=== PATIENT | female | born 1995 | race Hispanic/Latino ===

== ENCOUNTER 2017-08-26 18:19 | Inpatient (IN) | payer MEDICAID ==
[~2017-08-26] VITALS: Ht 152.4 cm; Wt 80.3 kg
[~2017-08-26 18:19] MED LIST: PREN-64 PO
[2017-08-26] MEDS ORDERED: LACTATED RINGERS 1000ML 1,000 ML IV PRN (19:19)
[2017-08-26 19:50] LABS: APPEARANCE,URINE Cloudy (CLEAR); BILIRUBIN,URINE Negative (NEGATIVE); COLOR,URINE Dark Yellow (YELLOW); GLUCOSE, URINE (UA) Negative (NEGATIVE); KETONES,URINE Negative (NEGATIVE); LEUKOCYTE ESTERASE ,URINE Large (NEGATIVE); NITRATE,URINE Negative (NEGATIVE); OCCULT BLOOD,URINE Negative (NEGATIVE); PROTEIN,URINE POS 1+ (NEGATIVE)
[2017-08-26 20:18] LABS: BACTERIA,URINE Many /HPF (None Seen); RBC,URINE None Seen /HPF (0-1)
[2017-08-27] VITALS (10 sets, daily range): BP systolic 118–153; BP diastolic 75–97
[2017-08-27] MEDS ORDERED: LACTATED RINGERS 1000ML 1,000 ML IV ONE (03:34)
[2017-08-27] MEDS ORDERED: OXYTOCIN 10 USP UNITS/ML ONE ×2 (03:35→14:59)
[2017-08-27] MEDS ORDERED: OXYTOCIN 10 USP UNITS/ML 20 UNIT in LACTATED RINGERS 1000ML 1,000 ML IV SCH (04:00)
[2017-08-27] MEDS ORDERED: NALOXONE HCL 0.4 MG/1 ML ML IV PRN (05:30)
[2017-08-27] MEDS ORDERED: EPHEDRINE SULFATE 50 MG/ML AMPULE IVP PRN (05:30)
[2017-08-27] MEDS ORDERED: LACTATED RINGERS 500 ML 500 ML IV PRN (05:30)
[2017-08-27] MEDS ORDERED: MEPERIDINE-PF 50 MG/ML SYG IVP SCH (06:58)
[2017-08-27] MEDS ORDERED: PROMETHAZINE HCL 25 MG/ML 1ML AMPULE IM SCH (06:58)
[2017-08-27] MEDS ORDERED: MEPERIDINE-PF 50 MG/ML SYG ONE (07:12)
[2017-08-27] MEDS ORDERED: PROMETHAZINE HCL 25 MG/ML 1ML AMPULE IM ONE (07:15)
[2017-08-27] MEDS ORDERED: MEPERIDINE-PF 25 MG/ML SYG IVP ONE (09:00)
[2017-08-27] MEDS ORDERED: MEPERIDINE-PF 25 MG/ML SYG ONE (09:01)
[2017-08-27] MEDS ORDERED: MEASLES/MUMPS/RUBELLA VACCINE, LIVE 0.5 ML/VIAL SQ PRN (11:15)
[2017-08-27] MEDS ORDERED: LANOLIN 30GM OINTMENT TP PRN (11:15)
[2017-08-27] MEDS ORDERED: BENZOCAINE/LANOLIN/ALOE VERA 60 ML AEROSOL TP PRN (11:15)
[2017-08-27] MEDS ORDERED: DIPH,PERTUSS(ACELL),TET VAC/PF 0.5 ML VIAL IM PRN (11:15)
[2017-08-27] MEDS ORDERED: WITCH HAZEL 1 PAD TP PRN (11:15)
[2017-08-27] MEDS: IBUPROFEN 600 MG TABLET PO PRN ×2 (11:31→20:48)
[2017-08-27] MEDS: ACETAMINOPHEN 325 MG TAB PO PRN (15:47)
[2017-08-27] MEDS: DOCUSATE SODIUM 100 MG CAP PO SCH (20:48)
[2017-08-28 02:59] VITALS: BP 108/56
[2017-08-28 05:33] LABS: HEMATOCRIT 24.6 % (36-48); MEAN CORPUSCULAR HEMOGLOBIN 27.7 pg (27.0-33.0); MEAN CORPUSCULAR VOLUME 83.9 fL (79-99); PLATELET COUNT (AUTO) 218 K/uL (130-400); RED BLOOD CELL COUNT(AUTO) 2.93 MIL/uL (4.00-5.50); RED CELL DISTRIBUTION WIDTH 13.3 % (11.0-15.5); WHITE BLOOD COUNT (AUTO) 16.1 K/uL (4.8-10.8)
[2017-08-28 08:10] VITALS: BP 127/71
[2017-08-28 08:17] LABS: HEPATITIS Bs ANTIGEN SCREEN P Negative (Negative)
[2017-08-28] MEDS: DOCUSATE SODIUM 100 MG CAP PO SCH (10:02)
[2017-08-28] MEDS: IBUPROFEN 600 MG TABLET PO PRN (10:02)
[2017-08-28 11:55] VITALS: BP 133/81
[2017-08-28] MEDS: ACETAMINOPHEN 325 MG TAB PO PRN (12:02)
[2017-08-28 16:06] VITALS: BP 124/63
== END 2017-08-28 18:25 | disposition home or self-care (01) | DRG 560 ==
LOC: LDH 18:19 → WSH 08-27 09:50
PROVIDERS: ADMIT Obstetrics & Gynecology; ATTEND Obstetrics & Gynecology
PROC: 10E0XZZ Delivery of Products of Conception, External Approach (ICD-10-PCS; principal; 2017-08-26)
PROC: 10907ZC Drainage of Amniotic Fluid, Therapeutic from Products of Conception, Via Natural or Artificial Opening (ICD-10-PCS; 2017-08-26)
PROC: 3E0P3VZ Introduction of Hormone into Female Reproductive, Percutaneous Approach (ICD-10-PCS; 2017-08-26)
PROC: 3E0234Z Introduction of Serum, Toxoid and Vaccine into Muscle, Percutaneous Approach (ICD-10-PCS; 2017-08-26)
PROC: 3E0134Z Introduction of Serum, Toxoid and Vaccine into Subcutaneous Tissue, Percutaneous Approach (ICD-10-PCS; 2017-08-26)
DX: O98.82 Other maternal infectious and parasitic diseases complicating childbirth (principal); Z23 Encounter for immunization; Z37.0 Single live birth; Z3A.40 40 weeks gestation of pregnancy
CPT/HCPCS: 36415; 81001; 85027; 86592; 86850; 86900; 86901; 87340; A4314; A4351; A4606; J2175; J2550; J2590; J7120

== ENCOUNTER 2019-10-12 09:46 | Observation (INO) | payer MEDICAID | END 2019-10-12 14:20 | disposition home or self-care (01) | LOC: EDH 09:46 → LDH 10:31 | PROVIDERS: ADMIT Obstetrics & Gynecology; ATTEND Obstetrics & Gynecology | DX: O46.93 Antepartum hemorrhage, unspecified, third trimester (principal); Z3A.28 28 weeks gestation of pregnancy; Z87.59 Personal history of other complications of pregnancy, childbirth and the puerperium | CPT/HCPCS: 59025; 76805; 99284; G0378 ×4 ==

== ENCOUNTER 2019-12-18 07:44 | Inpatient (IN) | payer MEDICAID ==
[~2019-12-18] VITALS: Ht 152.4 cm; Wt 76.2 kg
[2019-12-18] MEDS ORDERED: LACTATED RINGERS 1000ML 1,000 ML IV PRN (08:22)
[2019-12-18] MEDS ORDERED: MEPERIDINE-PF 50 MG/ML SYG ONE (08:24)
[2019-12-18] MEDS ORDERED: OXYTOCIN 10 USP UNITS/ML 20 UNIT in LACTATED RINGERS 1000ML 1,000 ML IV SCH (08:30)
[2019-12-18] MEDS ORDERED: OXYTOCIN-LR 20 UNITS/1000 ML 1,000 ML IV SCH ×2 (08:30→09:45)
[2019-12-18] MEDS ORDERED: LIDOCAINE HCL 1% 20 ML VIAL INJ PRN (08:30)
[2019-12-18 08:53] LABS: MEAN CORPUSCULAR HEMOGLOBIN 28.2 pg (27.0-33.0); MEAN CORPUSCULAR HGB CONC 32.4 g/dL (32.0-36.0); MEAN CORPUSCULAR VOLUME 87.2 fL (79-99); RED BLOOD CELL COUNT(AUTO) 3.9 MIL/uL (4.00-5.50); RED CELL DISTRIBUTION WIDTH 13.6 % (11.0-15.5); WHITE BLOOD COUNT (AUTO) 11.2 K/uL (4.8-10.8)
[2019-12-18] MEDS ORDERED: OXYTOCIN-LR 20 UNITS/1000 ML 2,000 ML IV ONE (09:02)
[2019-12-18] MEDS ORDERED: ROPIVACAINE 0.2% 100ML VIAL 100 ML EP SCH (09:30)
[2019-12-18] MEDS ORDERED: NALOXONE HCL 0.4 MG/1 ML ML IV PRN (09:30)
[2019-12-18] MEDS ORDERED: LACTATED RINGERS 500 ML 500 ML IV PRN (09:30)
[2019-12-18] MEDS ORDERED: EPHEDRINE SULFATE 50 MG/ML AMPULE IVP PRN (09:30)
[2019-12-18] MEDS ORDERED: MEPERIDINE-PF 50 MG/ML SYG IVP SCH (09:34)
[2019-12-18] MEDS ORDERED: PROMETHAZINE HCL 25 MG/ML 1ML AMPULE IM SCH (09:35)
[2019-12-18] MEDS ORDERED: FENTANYL CITRATE PF 50 MCG/1 ML 2ML VIAL ONE (09:42)
[2019-12-18] MEDS ORDERED: DIPH,PERTUSS(ACELL),TET VAC/PF 0.5 ML VIAL IM PRN (11:15)
[2019-12-18] MEDS ORDERED: ACETAMINOPHEN-CODEINE 300/30MG TAB PO PRN (11:15)
[2019-12-18] MEDS ORDERED: WITCH HAZEL 1 PAD TP PRN (11:15)
[2019-12-18] MEDS ORDERED: MEASLES/MUMPS/RUBELLA VACCINE, LIVE 0.5 ML/VIAL SQ PRN (11:15)
[2019-12-18] MEDS ORDERED: ACETAMINOPHEN 325 MG TAB PO PRN (11:15)
[2019-12-18] MEDS ORDERED: BENZOCAINE/LANOLIN/ALOE VERA 60 ML AEROSOL TP PRN (11:15)
[2019-12-18] MEDS ORDERED: LANOLIN 30GM OINTMENT TP PRN (11:15)
[2019-12-18 12:41] LABS: APPEARANCE,URINE Cloudy (CLEAR); BILIRUBIN,URINE Negative (NEGATIVE); COLOR,URINE Yellow (YELLOW); GLUCOSE, URINE (UA) Negative (NEGATIVE); KETONES,URINE Negative (NEGATIVE); LEUKOCYTE ESTERASE ,URINE Moderate (NEGATIVE); NITRATE,URINE Negative (NEGATIVE); OCCULT BLOOD,URINE Moderate (NEGATIVE); PH,URINE 6.5 (5.0-8.0); PROTEIN,URINE Negative (NEGATIVE); UROBILINOGEN,URINE 0.2 mg/dL (0.2-1.0)
--- NOTE | 2019-12-18 13:00 | NUR ---
REPORT RECEIVED FROM Shonna DE LEON RN AND PATIENT CARE TRANSFERED AT THIS TIME. C/O PAIN AND WAS MEDICATED WITH MOTRIN 600MGS. PATIENT WAS ASSISTED TO BATHROOM PER REPORT PRIOR TO TRANSFER. ORIENTED TO UNIT AND CALL LIGHT LEFT AT BEDSIDE TO CALL FOR ASSISTANCE NEEDED.
[2019-12-18 13:03] VITALS: BP 146/76
[2019-12-18] MEDS: IBUPROFEN 600 MG TABLET PO PRN ×2 (13:03→18:51)
[2019-12-18 13:15] LABS: BACTERIA,URINE Few /HPF (None Seen)
[2019-12-18] MEDS ORDERED: DOCO200C5 PO (17:50)
--- NOTE | 2019-12-18 19:10 | NUR ---
received report from Estrellita Barrera RN
--- NOTE | 2019-12-18 19:10 | NUR ---
REPORT GIVEN TO SELINA, RN AND PATIENT CARE TRANSFERED AT THIS TIME. PATIENT IS STABLE AND WAS MEDICATED PRIOR TO GIVING REPORT.
--- NOTE | 2019-12-18 19:20 | NUR ---
DISCHARGE INSTRUCTIONS GIVEN TO PATIENT AND INFO ON COVID 19 PROVIDED. PATIENT RESTING AT THIS TIME. VERBALIZED UNDERSTANDING IN STRUCTIONS GIVEN. [facility] WAS CALLED PRIOR TO TRANSFER OF PATIENT CARE AND SPOKE TO BERYL AND WAS MADE AWARE OF PENDING SOCIAL SERVICE CONSULT FOR HISTORY OF DEPRESSION. BERYL INDICATED SHE WOULD MAKE MICHELLE AWARE OF CONSULT IN A.M.
--- NOTE | 2019-12-18 19:50 | NUR ---
no family member present at bedside at this time.
[2019-12-18 20:00] VITALS: BP 114/66
--- NOTE | 2019-12-18 20:00 | NUR ---
pt. doesn't IV fluids infusing anymore. It was finished and discontinued during the day shift. IV site is covered with bandaid strip. Pt. denies pain at this time. She said that she is allergic to hydrocodone. She had rashes. Pt. verbalized that the Motrin that she received earlier helped eased her abdominal cramping.
--- NOTE | 2019-12-18 20:10 | NUR ---
fundus firm at the level of the umbilicus. Small lochia rubra noted.
--- NOTE | 2019-12-18 20:15 | NUR ---
pt. holding her baby boy at this time. She denies pain on her breasts. Pt. requesting sandwich tray and cranberry juice.
[2019-12-18 20:21] LABS: AMPHET/METH SCREEN,URINE NEGATIVE (NEGATIVE); BARBITURATE SCREEN, URINE NEGATIVE (NEGATIVE); BENZODIAZEPINES SCREEN,URINE NEGATIVE (NEGATIVE); CANNABINOID SCREEN,URINE NEGATIVE (NEGATIVE); COCAINE SCREEN,URINE NEGATIVE (NEGATIVE); OPIATE SCREEN,URINE NEGATIVE (NEGATIVE); PHENCYCLIDINE SCREEN,URINE NEGATIVE (NEGATIVE)
--- NOTE | 2019-12-18 20:25 | NUR ---
sandwich tray and cranberry juice given. Jacqui Echevarria; RN in the nursery here in pt's room and instructions given to the pt. regarding care of baby specially that she is going home tomorrow.
--- NOTE | 2019-12-18 20:50 | NUR ---
pt. in the bathroom and voided yellow urine. Small lochia rubra noted. Elena care done. Elena pad applied.
--- NOTE | 2019-12-18 21:00 | NUR ---
colace 100 mg. one tablet given PO. Pt. tolerated well. After she took the pill, she ate the remaining half of the sandwich and eat with appetite. Baby in the room in the open crib.
[2019-12-18] MEDS: DOCUSATE SODIUM 100 MG CAP PO SCH (21:02)
--- NOTE | 2019-12-18 22:00 | NUR ---
reinforced teachings on use of sitz bath. Pt. verbalized that she know how to use it and the rationale. No pain presented at this time.
[2019-12-19] VITALS: BP 124/76
--- NOTE | 2019-12-19 00:10 | NUR ---
motrin 600 mg given pO. Pt. tolerated the intake of the pill well. cranberry juice and sandwich given.
[2019-12-19] MEDS: IBUPROFEN 600 MG TABLET PO PRN (00:13)
[2019-12-19 04:18] VITALS: BP 111/71
[2019-12-19 05:18] LABS: HEMATOCRIT 28.4 % (36-48); MEAN CORPUSCULAR HEMOGLOBIN 27.8 pg (27.0-33.0); MEAN CORPUSCULAR HGB CONC 32.4 g/dL (32.0-36.0); MEAN CORPUSCULAR VOLUME 85.8 fL (79-99); RED BLOOD CELL COUNT(AUTO) 3.31 MIL/uL (4.00-5.50); RED CELL DISTRIBUTION WIDTH 13.5 % (11.0-15.5); WHITE BLOOD COUNT (AUTO) 12.3 K/uL (4.8-10.8)
--- NOTE | 2019-12-19 06:25 | NUR ---
TREVA Ku CNM at bedside to speak with and assess patient. Questions invited and answered. POC discussed for discharge home today. Patient in agreement.
[2019-12-19] MEDS: DOCUSATE SODIUM 100 MG CAP PO SCH (09:00)
--- NOTE | 2019-12-19 10:44 | NUR ---
SS/CM trigger Trigger received for pt w hx depression. Met w pt this am to discuss nsg trigger. Pt denies any history of depression/anxiety. Pt mentions that her prior child was born on 2017 and managed well. Pt mentions that she lives w her sig other (Endy Lawson) and her 3children. She is independent w ambulation and ADLs, works @ [employer]. Pt mentions that she has all the necessary items for baby @ home. She is planning to name baby (Erick Lawson) and has chosen [facility] for pediatric services. Pt mentions that she has a good support system to assist her @ home including her Aunt Janette, sister and sister in law. She mentions that she also receives assistance from WIC and [facility] and has no worries at this time. Provided pt w additional Resource list including counseling services if needed. Discussed coping mechanisms as well as the need to communicate w family should she begin to feel s/s of depression/anxiety. Informed pt to seek medical attention if/or when she feels in ability to cope. No further need for referrals identified at this time. Addendum: 12/19/19 at 1052 by MICHELLE FRIAS CM Amended: Links added.
--- NOTE | 2019-12-19 11:30 | NUR ---
DISCHARGE TEACHING DISCHARGE TEACHING REITERATED WITH PT, QUESTIONS INVITED, DENIES AT THIS TIME. PT STATES SHE IS WAITING FOR [facility] OTHER TO PICK HER UP FROM HOSPITAL. PRESCRIPTION GIVEN TO PT.
--- NOTE | 2019-12-19 13:10 | NUR ---
DISCHARGE DISCHARGED VIA WHEELCHAIR WITH IN ARMS. BABY SEEN PLACED IN CARSEAT. DEPARTED PER PERSONAL VEHICLE WITH SIGN[facility]ANT OTHER.
[2019-12-21 08:10] LABS: HEPATITIS Bs ANTIGEN SCREEN P Negative (Negative)
== END 2019-12-19 13:10 | disposition home or self-care (01) | DRG 560 ==
LOC: EDH 07:44 → LDH 07:45 → OBSVTOIN 07:45 → WSH 13:00
PROVIDERS: ADMIT Obstetrics & Gynecology; ATTEND Obstetrics & Gynecology
PROC: 10E0XZZ Delivery of Products of Conception, External Approach (ICD-10-PCS; principal; 2019-12-18)
PROC: 3E0234Z Introduction of Serum, Toxoid and Vaccine into Muscle, Percutaneous Approach (ICD-10-PCS; 2019-12-18)
PROC: 3E0134Z Introduction of Serum, Toxoid and Vaccine into Subcutaneous Tissue, Percutaneous Approach (ICD-10-PCS; 2019-12-18)
PROC: 3E0R3BZ Introduction of Anesthetic Agent into Spinal Canal, Percutaneous Approach (ICD-10-PCS; 2019-12-18)
PROC: 00HU33Z Insertion of Infusion Device into Spinal Canal, Percutaneous Approach (ICD-10-PCS; 2019-12-18)
PROC: 10907ZC Drainage of Amniotic Fluid, Therapeutic from Products of Conception, Via Natural or Artificial Opening (ICD-10-PCS; 2019-12-18)
DX: O71.82 Other specified trauma to perineum and vulva (principal); Z37.0 Single live birth; Z23 Encounter for immunization; Z3A.39 39 weeks gestation of pregnancy
CPT/HCPCS: 36415; 80305; 81001; 85027; 86592; 86850; 86900; 86901; 87088; 87340; A4351; G0378; J2175; J2590; J3010

== ENCOUNTER 2021-03-04 21:20 | Emergency (ER) | payer MEDICAID ==
[~2021-03-04] VITALS: Ht 162.6 cm; Wt 79.4 kg
[~2021-03-04 21:20] MED LIST changes: +DOCO200C5 PO
[2021-03-05 02:24] VITALS: BP 135/87
[2021-03-05] MEDS ORDERED: KETOROLAC 30MG VIAL (30MG/ML) ONE (02:55)
[2021-03-05] MEDS ORDERED: KETOROLAC 30MG VIAL (30MG/ML) IM ONE (03:00)
[2021-03-05] MEDS ORDERED: NAPR-1180 PO (03:54)
[2021-03-05] MEDS ORDERED: MORPHINE 4 MG SYG IM ONE (04:30)
== END 2021-03-05 05:26 | disposition home or self-care (01) ==
LOC: EDH 21:20
DX: S22.41XA Multiple fractures of ribs, right side, initial encounter for closed fracture (principal); Z88.5 Allergy status to narcotic agent; Z79.1 Long term (current) use of non-steroidal anti-inflammatories (NSAID); W22.8XXA Striking against or struck by other objects, initial encounter; Y93.89 Activity, other specified; Y92.810 Car as the place of occurrence of the external cause; Y99.8 Other external cause status
CPT/HCPCS: 71101; 96372 ×2; 99284; J1885; J2270

== ENCOUNTER 2021-12-17 09:43 | Emergency (ER) | payer MEDICAID ==
[~2021-12-17] VITALS: Ht 154.9 cm; Wt 89.8 kg
[~2021-12-17 09:43] MED LIST changes: +NAPR-1180 PO
[2021-12-17 09:47] VITALS: BP 133/82
[2021-12-17] MEDS ORDERED: DEXAMETHASONE SOD PHOSPHATE 4 MG/ML 1ML VIAL IM SCH (10:00)
[2021-12-17] MEDS ORDERED: LORA10TA7 PO (10:02)
[2021-12-17] MEDS ORDERED: BENZ-39 PO (10:02)
[2021-12-17] MEDS ORDERED: FLUT16H NASAL (10:02)
[2021-12-17] MEDS ORDERED: DEXAMETHASONE SOD PHOSPHATE 4 MG/ML 1ML VIAL ONE (10:04)
[2021-12-17] MEDS ORDERED: [UNRECOGNIZED DRUG - CODE] OT (10:06)
== END 2021-12-17 10:19 | disposition home or self-care (01) ==
LOC: EDH 09:43
DX: J32.2 Chronic ethmoidal sinusitis (principal); Z88.6 Allergy status to analgesic agent; Z79.899 Other long term (current) drug therapy; Z98.890 Other specified postprocedural states
CPT/HCPCS: 96372; 99283; J1100

== ENCOUNTER 2022-05-28 13:36 | Emergency (ER) | payer MEDICAID ==
[~2022-05-28] VITALS: Ht 152.4 cm; Wt 93.0 kg
[~2022-05-28 13:36] MED LIST changes: +BENZ-39 PO; +FLUT16H NASAL; +LORA10TA7 PO; +[UNRECOGNIZED DRUG - CODE] OT
[2022-05-28 14:10] LABS: APPEARANCE,URINE CLEAR (CLEAR); BILIRUBIN,URINE NEGATIVE (NEGATIVE); COLOR,URINE LIGHT-YELLOW (YELLOW); GLUCOSE, URINE (UA) NEGATIVE (NEGATIVE); KETONES,URINE NEGATIVE (NEGATIVE); LEUKOCYTE ESTERASE ,URINE NEGATIVE Leu/uL (NEGATIVE); NITRATE,URINE NEGATIVE (NEGATIVE); OCCULT BLOOD,URINE NEGATIVE (NEGATIVE); PROTEIN,URINE NEGATIVE (NEGATIVE); UROBILINOGEN,URINE 0.2 mg/dL (0.2-1.0)
[2022-05-28 14:13] LABS: BACTERIA,URINE RARE /HPF (None Seen); MUCUS,URINE RARE LPF (None Seen); SQUAMOUS EPITHELIAL CELL,UR FEW /HPF (0-2)
[2022-05-28 14:16] LABS: HCG,QUALITATIVE URINE NEGATIVE (NEGATIVE)
[2022-05-28 14:17] LABS: BASOPHILS % (AUTO) 0.3 % (0.0-5.0); EOSINOPHILS % (AUTO) 1.4 % (0.0-8.0); HEMATOCRIT 38.3 % (36-48); LYMPHOCYTES % (AUTO) 18.1 % (21.0-51.0); MEAN CORPUSCULAR HEMOGLOBIN 29.6 pg (27.0-33.0); MEAN CORPUSCULAR HGB CONC 32.9 g/dL (32.0-36.0); MEAN CORPUSCULAR VOLUME 89.9 fL (79-99); MONOCYTES % (AUTO) 8.3 % (3.0-13.0); NEUTROPHILS % (AUTO) 71.6 % (40.0-77.0); PLATELET COUNT (AUTO) 312 K/uL (130-400); RED BLOOD CELL COUNT(AUTO) 4.26 MIL/uL (4.00-5.50); RED CELL DISTRIBUTION WIDTH 12.9 % (11.0-15.5); WHITE BLOOD COUNT (AUTO) 11.8 K/uL (4.8-10.8)
[2022-05-28 14:24] LABS: CREATININE 0.7 mg/dL (0.5-1.5); POTASSIUM 3.8 mmol/L (3.5-5.1)
[2022-05-28 14:29] LABS: ALBUMIN 3.7 g/dL (3.5-5.0)
[2022-05-28] MEDS ORDERED: NAPR375T6 PO (15:36)
[2022-05-28 15:50] VITALS: BP 116/78
[2022-05-28] MEDS ORDERED: BUSP15 PO (16:03)
== END 2022-05-28 16:09 | disposition home or self-care (01) ==
LOC: EDH 13:36
DX: N64.4 Mastodynia (principal); N60.11 Diffuse cystic mastopathy of right breast; F41.9 Anxiety disorder, unspecified; Z88.5 Allergy status to narcotic agent; Z79.899 Other long term (current) drug therapy; Z98.890 Other specified postprocedural states
CPT/HCPCS: 36415; 80053; 81001; 81025; 85025; 93005

== ENCOUNTER 2023-01-01 13:35 | Emergency (ER) | payer MEDICAID ==
[~2023-01-01] VITALS: Ht 152.4 cm; Wt 85.7 kg
[~2023-01-01 13:35] MED LIST changes: +BUSP15 PO; +NAPR375T6 PO
[2023-01-01 14:51] VITALS: BP 136/69
[2023-01-01] MEDS ORDERED: AMOX-426 PO (15:46)
[2023-01-01] MEDS ORDERED: CEFTRIAXONE 1G VIAL IM ONE (16:00)
[2023-01-04] MEDS ORDERED: IBUP-2077 PO (12:33)
[2023-01-04] MEDS ORDERED: LIDOP TP (12:33)
[2023-01-04] MEDS ORDERED: METH-811 PO (12:33)
== END 2023-01-01 16:38 | disposition home or self-care (01) ==
LOC: EDH 13:35
DX: J02.0 Streptococcal pharyngitis (principal); Z88.5 Allergy status to narcotic agent; Z20.822 Contact with and (suspected) exposure to COVID-19
CPT/HCPCS: 99283; 87635; 87880; 87804 ×2; 96372; C9803; J0696

== ENCOUNTER 2023-03-13 11:27 | Emergency (ER) | payer MEDICAID, OTHER ==
[~2023-03-13] VITALS: Ht 152.4 cm; Wt 87.1 kg
[~2023-03-13 11:27] MED LIST changes: +AMOX-426 PO; +IBUP-2077 PO; +LIDOP TP; +METH-811 PO
[2023-03-13] MEDS ORDERED: 0.9%NACL 1000ML 1,000 ML IV ONE (12:00)
[2023-03-13 12:15] LABS: APPEARANCE,URINE CLEAR (CLEAR); BILIRUBIN,URINE NEGATIVE (NEGATIVE); COLOR,URINE COLORLESS (YELLOW); GLUCOSE, URINE (UA) NEGATIVE (NEGATIVE); KETONES,URINE NEGATIVE (NEGATIVE); LEUKOCYTE ESTERASE ,URINE 25 Leu/uL (NEGATIVE); NITRATE,URINE NEGATIVE (NEGATIVE); OCCULT BLOOD,URINE NEGATIVE (NEGATIVE); PH,URINE 6.5 (5.0-8.0); PROTEIN,URINE NEGATIVE (NEGATIVE); UROBILINOGEN,URINE 0.2 mg/dL (0.2-1.0)
[2023-03-13 12:17] LABS: HCG,QUALITATIVE URINE NEGATIVE (NEGATIVE)
[2023-03-13 12:22] LABS: MUCUS,URINE RARE LPF (None Seen); OTHER CASTS, URINE 1 /LPF (None Seen); RBC,URINE 0-1 /HPF (0-1); SQUAMOUS EPITHELIAL CELL,UR RARE /HPF (0-2)
[2023-03-13 12:23] LABS: BASOPHILS % (AUTO) 0.3 % (0.0-5.0); EOSINOPHILS % (AUTO) 0.6 % (0.0-8.0); HEMATOCRIT 40.4 % (36-48); LYMPHOCYTES % (AUTO) 20.7 % (21.0-51.0); MEAN CORPUSCULAR HEMOGLOBIN 30.3 pg (27.0-33.0); MEAN CORPUSCULAR HGB CONC 33.2 g/dL (32.0-36.0); MEAN CORPUSCULAR VOLUME 91.4 fL (79-99); MONOCYTES % (AUTO) 13.7 % (3.0-13.0); NEUTROPHILS % (AUTO) 64.3 % (40.0-77.0); PLATELET COUNT (AUTO) 287 K/uL (130-400); RED BLOOD CELL COUNT(AUTO) 4.42 MIL/uL (4.00-5.50); RED CELL DISTRIBUTION WIDTH 13.4 % (11.0-15.5); WHITE BLOOD COUNT (AUTO) 6.9 K/uL (4.8-10.8)
[2023-03-13 12:43] LABS: CREATININE 0.6 mg/dL (0.5-1.5); POTASSIUM 3.8 mmol/L (3.5-5.1)
[2023-03-13 12:47] LABS: ALBUMIN 3.3 g/dL (3.5-5.0); TOTAL PROTEIN, SERUM 8.2 g/dL (6.0-8.3)
[2023-03-13] MEDS ORDERED: LOPE2CAP14 PO (14:07)
[2023-03-13 15:02] VITALS: BP 133/78; PULSE 70; RESP 18; O2SAT 98
== END 2023-03-13 15:03 | disposition home or self-care (01) ==
LOC: EDH 11:27
DX: K52.9 Noninfective gastroenteritis and colitis, unspecified (principal); Z88.5 Allergy status to narcotic agent
CPT/HCPCS: 36415; 74018; 80053; 81001; 81025; 83690; 85025; 96360; J7030

== ENCOUNTER 2023-10-26 14:42 | Emergency (ER) | payer MEDICAID, OTHER ==
[~2023-10-26] VITALS: Ht 154.9 cm; Wt 94.3 kg
[~2023-10-26 14:42] MED LIST changes: +LOPE2CAP14 PO
[2023-10-26 14:56] VITALS: BP 130/78; PULSE 104; RESP 20
[2023-10-26] MEDS: KETOROLAC 60 MG VIAL (30MG/ML) IM ONE (16:38)
[2023-10-26] MEDS: KETOROLAC 30MG VIAL (30MG/ML) ONE (16:38)
[2023-10-26] MEDS: HYDROCODONE/ACETAMINOPHEN 5/325 MG TAB PO ONE (18:23)
[2023-10-26] MEDS ORDERED: ACET-2079 PO (18:53)
[2023-10-26] MEDS ORDERED: CYCL5TAB PO (18:53)
[2023-10-26] MEDS ORDERED: NAPR-1023 PO (18:53)
[2023-10-26] MEDS ORDERED: LIDO1ADH71 TP (18:53)
== END 2023-10-26 19:20 | disposition home or self-care (01) ==
LOC: EDH 14:42
DX: S50.11XA Contusion of right forearm, initial encounter (principal); S20.211A Contusion of right front wall of thorax, initial encounter; V89.2XXA Person injured in unspecified motor-vehicle accident, traffic, initial encounter; Y93.89 Activity, other specified; Y92.89 Other specified places as the place of occurrence of the external cause; Y99.8 Other external cause status
CPT/HCPCS: 99284; 71045; 73090; 96372; J1885; 29105